=== PATIENT | female | born 1945 | race Caucasian/White ===

== ENCOUNTER 2016-07-19 08:43 | Emergency (ER) | payer MEDICARE ==
[~2016-07-19] VITALS: Ht 167.6 cm; Wt 68.0 kg
[2016-07-19 08:47] VITALS: BP 146/79; PULSE 71; RESP 18; TEMP 98; O2SAT 98
[2016-07-19] MEDS ORDERED: STATIN (08:58)
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
[2016-07-19] MEDS ORDERED: MOTR200T4 PO (09:51)
== END 2016-07-19 10:13 | disposition home or self-care (01) ==
LOC: PHED 08:43
DX: S69.91XA Unspecified injury of right wrist, hand and finger(s), initial encounter (principal); E78.00 Pure hypercholesterolemia, unspecified; V18.0XXA Pedal cycle driver injured in noncollision transport accident in nontraffic accident, initial encounter; Y93.55 Activity, bike riding; Y92.9 Unspecified place or not applicable; Y99.9 Unspecified external cause status
CPT/HCPCS: 73130; 99283; L3808